=== PATIENT | female | born 1965 | race Caucasian/White ===

== ENCOUNTER 2016-10-21 10:12 | Emergency (ER) | payer MEDICARE, MEDICAID ==
[~2016-10-21] VITALS: Ht 165.1 cm; Wt 67.7 kg
[2016-10-21] MEDS ORDERED: HYDROmorphone 1 MG/ML (DILAUDID) SYRINGE IV ONE (10:45)
[2016-10-21] MEDS ORDERED: ONDANSETRON 2 MG/ML (Z0FRAN) 2 ML VIAL IV ONE (10:45)
[2016-10-21] MEDS: SODIUM CHLORIDE FLUSH 3 ML SYR IV PRN ×2 (11:02→13:09)
--- NOTE | 2016-10-21 11:02 | NUR ---
PATIENT AND SPOUSE ANIMATE ABOUT PT NOT BEING GIVEN DILAUDID. BOTH REPORT PT HAD DILAUDID ONCE BEFORE AND HAD CHEST PAIN, SOA, AND INCREASED ANXIETY. NO DILAUDID GIVEN. DR. BOB NOTIFIED OF PT'S REFUSAL OF MEDICATION. DILAUDID ADDED "ADVERSE REACTION" CHART.
[2016-10-21] MEDS ORDERED: morphine INJ 4 MG/ML 1 ML SYRINGE IV ONE ×2 (11:05→12:30)
[2016-10-21] MEDS: SODIUM CHLORIDE FLUSH 10 ML SYR IV PRN ×3 (11:11→13:00)
[2016-10-21 11:17] LABS: BASOPHILS % (AUTO) 0 % (0-2); EOSINOPHILS % (AUTO) 0 % (0-4); LYMPHOCYTES # (AUTO) 1.1 X10^3; MEAN CORPUSCULAR HGB CONC 35.2 g/dL (31.0-37.0); MEAN CORPUSCULAR VOLUME 94 FL (80-100); MONOCYTES # (AUTO) 0.4 X10^3; MONOCYTES % (AUTO) 4 % (3-11); NEUTROPHILS # (AUTO) 7.5 X10^3; NEUTROPHILS % (AUTO) 83 % (51-67); PLATELET COUNT 204 10^3uL (150-450); WHITE BLOOD COUNT 9.06 10^3uL (4.0-11.0)
[2016-10-21 11:26] LABS: ALBUMIN 4.5 g/dL (3.4-5.0); ANION GAP 13.5 MEQ/L (3-15); CALCULATED IONIZED CALCIUM 4.1 mg/dL (3.8-4.6); TOTAL PROTEIN 7.8 g/dL (6.4-8.5)
[2016-10-21 12:12] LABS: BILIRUBIN,URINE Negative (Negative); CLARITY,URINE Cloudy; COLOR,URINE Yellow; GLUCOSE, URINE (UA) Negative (Negative); LEUKOCYTE ESTERASE ,URINE Negative (Negative); PH,URINE 8.5 (5.0 - 8.0); UROBILINOGEN,URINE 0.2 mg/dL (0.2-1.0)
[2016-10-21 22:29] VITALS: BP 126/69
== END 2016-10-21 13:27 | disposition home or self-care (01) ==
LOC: EDUNIT# 10:12 → ED 10:14
DX: K86.1 Other chronic pancreatitis (principal)
CPT/HCPCS: 36415; 80053; 81003; 83690; 85025; 86140; 96374; 96375; 96376; 99284; J2270; J2405; J7030; 96361; 99283

== ENCOUNTER 2017-01-19 02:55 | Emergency (ER) | payer MEDICARE, MEDICAID ==
[~2017-01-19] VITALS: Ht 165.1 cm; Wt 67.2 kg
[~2017-01-19 02:55] MED LIST: AMIT25TA9 PO; CALC-829 PO; CELE200C PO; ESTR1TAB14 PO; HYDR-3702 PO; LIPA1CAP67 PO; METO-311 PO; MULT-1034 PO; OMEP40CA36 PO; ONDAN4ODT PO; PROM25TA14 PO; SULF-240 PO; TIOT4MIS3 IH; TRM50T PO; VALA500T PO
--- OUTSIDE RECORDS SUMMARY | 2017-01-19 03:01 | XMS REPORT | Continuity of Care Document ---
Author Author [facility] Organization [facility] Address Unknown Phone Unavailable Care Team Providers Care Sock Lining Examiner Name Role Phone Friend, Erika PCP [phone] Source Comments Some departments are not documenting in the electronic medical record. If you do not see the information that you expected, contact Release of Information in the Health Information Management department at [phone] for further assistance in locating additional records.[facility] Active Allergies and Adverse Reactions Allergen Noted Date Severity Reactions Comments Keflex 06/11/2013 SEE COMMENTS, SWEATING nightmares Current Medications Prescription Sig. Disp. Refills Start End Date Status Date COQ10 (UBIQUINOL) PO Take by mouth. Active ERGOCALCIFEROL (VITAMIN Take 2,000 Units by Active D2) (VITAMIN D PO) mouth. Vitamin D 3 ciprofloxacin (CIPRO) 500 Take 1 Tab by mouth twice 6 Tab 0 10/13/19 Active mg tablet daily. 14 [id number] Take by mouth as Needed. Active (FOOD ENZYME PO) promethazine (PHENERGAN) Take 25 mg by mouth every Active 25 mg tablet 6 hours as needed. amoxicillin (AMOXIL) 500 Take 500 mg by mouth Active mg capsule three times daily. other medication 1 Dose. Hydrangea Herbal Active Supplement estrogens, Take 1 Tab by mouth Active conj-medroxyPROGESTERone( daily. +) (PREMPRO) 0.3-1.[address](+) Take 40 mg by mouth Active (PRILOSEC) 40 mg capsule daily. fluconazole (DIFLUCAN) Take 100 mg by mouth Active 100 mg tablet daily. erythromycin base Take 500 mg by mouth as Active (E-MYCIN) 500 mg tablet Needed. TIOTROPIUM BR/OLODATEROL Inhale by mouth twice Active HCL (STIOLTO RESPIMAT IN) daily. traMADol (ULTRAM) 50 mg Take 50 mg by mouth every Active tablet 6 hours as needed for Pain. amitriptyline (ELAVIL) 25 Take 25 mg by mouth at Active mg tablet bedtime daily. HYDROcodone/acetaminophen Take 1 Tab by mouth every Active (NORCO) 5/325 mg tablet 4 hours as needed for Pain ondansetron (ZOFRAN) 4 mg Take 4 mg by mouth every Active tablet 8 hours as needed for Nausea or Vomiting. valACYclovir (VALTREX) Take 500 mg by mouth Active 500 mg tablet every 12 hours. celecoxib (CELEBREX) 200 TAKE ONE CAPSULE BY MOUTH 90 Cap 1 12/14/19 Active mg capsule DAILY 17 pancrelipase (CREON) Take 2 Caps by mouth 240 Cap 5 12/14/19 Active 36,000-114,000- 180,000 three times daily with 17 unit capsule meals. Take 1 cap by mouth with snacks 2 times daily. Active Problems Problem Noted Date Ureteral stone 10/03/2014 Overview: (L) UPJ Stone (L) ESWL -- 10/09/2014; Dr. Blanc -- pending. L ast Assessment & Plan: Personally reviewed [facility] & outside imaging. Discussed management/ treatment options, including ESWL vs URS. Pros/cons of each reviewed. After careful consideration, she would like to proceed w/ ESWL. (L) ESWL -- 10/09/2014; Dr. Blanc Possible risks & complications of surgery including but not limited to to bleeding, infection, allergic reactions, heart and blood pressure problems, persistent/ recurrent stone or stone fragments, stone fragments obstructing the ureter requiring intervention, renal injury, renal hematoma, kidney failure, injury to contiguous structures, need for additional procedures, and anesthesia complications including, but not limited to deep venous thrombosis, heart attack, stroke, pulmonary embolism, respiratory arrest, and . Pt demonstrates an understanding & wishes to proceed.. Pt demonstrates an understanding & wishes to proceed. Surgical consent signed in clinic today. Hold ASA, anticoagulants, blood thinners, NSAIDs, fish oil, & herbal supplements, etc. x 1 wk prior to surgery, unless otherwise directed. Pre-op abx, Levaquin IV, on-call to OR day of surgery. Labs: reviewed. x -- pending. Imaging: [facility] P[facility]. Consults: none. All questions answered to her satisfaction. Depression 10/02/2013 Overview: [employer] Effexor 75mg Gastroparesis 06/11/2013 Overview: This was measured with a 1.5 hr test with her laying down. May need to be repeated. She is a 47 year old woman who in [id number]. She had problems with nausea and vomiting. Associated with mid upper abdominal pain. She had her gallbladder removed at that time. Her abdominal pain resolved. Pancreatitis 06/11/2013 Overview: Ms. St is a 47 year old woman who in [id number] had problems with nausea and vomiting, associated with mid upper abdominal pain. Her gallbladder was removed at that time and that abdominal pain resolved. Her current pain started about a year ago, was on her left side, and was present only when she ate. She rated it a 6-7/10. She would take a Tylenol and Ibuprofen for it. After about 5 months, the pain became present all the time and is in her left upper flank. The pain is not stabbing, not throbbing, and is helped by Effexor and an ice pack. If she ate a full meal, the pain would worsen and she gets nauseous, but she is not sure if she would also vomit. She would possibly become bloated. The pain is present if she awakens at night. In April when she was admitted, her pain was much worse. She has been diagnosed with gastroparesis, having had a 1.5 hr test that showed she emptied only 15% of a standard meal and not the normal 40%. During the times that she is in greatest pain, she has been found to have elevations in her liver enzymes and lipase, consistent, possibly, with passing small common duct stones and having pancreatitis. I saw her first on the 11 of June and felt that her problem was not gastroparesis but pancreatitis. I referred her to Dr. Dubose and she underwent an ERCP and pancreatic stent placement by Dr. Dubose on the 30 of June. During that study, Dr. Dubose found minimal sludge and no obstruction. After the procedure was done, she felt that her midline abdominal pain was slightly better. The pancreatic stent was removed on the September,. I saw her next on the July,. She had been in our ER on the 17 of July with severe abdominal pain and was found to be suffering from a left sided ureteral kidney stone. In talking with her during her visit, outside of this new issue of having a kidney stone, she felt that she was not back in any way to her normal status. The last time she was "normal" was early this year. She has constant left sided pain. It gets severe about 3 times a week. The pain becomes bad enough for her to seek care about monthly. She feels that she is slightly better after the ERCP and pancreatic stent placement. She has had blood in her urine periodically. She does have a history of interstitial cystitis. She was to be started on Flowmax to help her excrete the stone, which was not started in the ER but I started it after her visit. She had a follow-up cystoscopy that did not find any evidence of bladder lesions. She apparently was doing ok in August and early September, but she developed severe left sided abdominal pain in the end of September, was found to have an elevated lipases of 700 and 900, and a CT done on the September, demonstrated distal pancreatitis. Eventually, we had her admitted on the September,. The CT was uploaded onto PACS and reviewed. During her stay she had a follow-up CT on the 02 of October that confirmed the new finding of pancreatitis. During her stay, we consulted Dr. Vera who advised us to start her on Octreotide, which she tolerated. She was able to eat a low fat diet and was discharged on the october, with slowly resolving pancreatic enzymes. L ast Assessment & Plan: Ms. St returned to clinic on the 17 of October. Since discharge, she has persistent 4-5/10 abdominal pain that is worsened with taking the octreotide with meals. She has visited Dr. Vera and it was recommended to take clear liquids prior to administering the octreotide shots. Likewise, the shots are now decreased to twice a day. She has also visited Dr. Blanc to further evaluate her hematuria via cystoscopy, the results of which were normal except for a trace of blood. Overall, she feels the abdominal pain has been constant but not as severe. She takes a Vicodin only once a week. Nephrolithiasis Overview: Passed kidney stone -- 2012. (L) ESWL -- 10/09/2014; Dr. Blanc -- pending. L ast Assessment & Plan: See ureteral stone A&P note. Chronic pain Last Assessment & Plan: Discussed that some of her more recent (L) flank pain exacerbation may be related to current stone, but treating stone is unlikely to resolve all chronic abd pain issues. She demonstrated an understanding. Chronic female pelvic pain Last Assessment & Plan: May consider referral back to Dr. Wong for repeat evaluation. May consider referral to pelvic floor PT. Most Recent Encounters Date Type Specialty Providers Description 01/01/2017 Ancillary Gastroenterology Ehsan Vera MD Abdominal discomfort Orders (Primary Dx); Pancreatitis, unspecified pancreatitis type; Gastroparalysis; Gastroparesis; Epigastric pain 12/25/2016 Telephone Gastroenterology Ehsan Vera MD Results 12/20/2016 [facility] Radiology Ehsan Vera MD Encounter 12/20/2016 Ancillary Ehsan Pierre MD Abdominal discomfort Orders (Primary Dx); Pancreatitis, unspecified pancreatitis type; Gastroparalysis; Gastroparesis; Pain aggravated by eating or drinking; Chronic vascular disorder of intestine (HCC) ; Other vascular disorders of intestine (HCC) 12/12/2016 Hospital Radiology Ehsan Vera MD Encounter 12/12/2016 Hospital Ehsan Vera MD Unspecified abdominal Encounter pain 12/11/2016 Hospital Ehsan Vera MD Unspecified abdominal Encounter pain 12/11/2016 Refill Gastroenterology Ehsan Vera MD Recurrent acute pancreatitis (Primary Dx) 12/06/2016 Hospital Lab Ehsan Vera MD Unspecified abdominal Encounter pain 12/06/2016 Office Visit GastroenterEhsan Blum MD Abdominal discomfort (Primary Dx); Pancreatitis, unspecified pancreatitis type; Gastroparalysis; Gastroparesis 12/06/2016 Hospital Radiology Ehsan Vera MD Encounter 12/06/2016 Hospital Radiology Ehsan Vera MD Encounter Social History Tobacco Use Types Packs/Day Years Used Date Current Some Day Smoker Cigarettes 0.2 20 Smokeless Tobacco: Never Used Comments: 3 Cigs at most daily. Alcohol Use Drinks/Week oz/Week Comments No Used to drink occasionally but none for 5 yrs Last Filed Vital Signs Vital Sign Reading Time Taken Blood Pressure 121/78 12/06/2016 9:01 AM CDT Pulse 92 12/06/2016 9:01 AM CDT Temperature 36.7 C (98 F) 12/06/2016 9:01 AM CDT Respiratory Rate 16 12/06/2016 9:01 AM CDT Height 1.676 m (5' 6") 12/06/2016 9:01 AM CDT Weight 68.675 kg (151 lb 6.4 oz) 12/06/2016 9:01 AM CDT Body Mass Index 24.45 12/06/2016 9:01 AM CDT Oxygen Saturation 99% 12/06/2016 9:01 AM CDT Plan of Care Health Maintenance Due Date Last Done Comments Hepatitis C Screening 1964 Physical (Comprehensive) 1971 Exam Pertussis Vaccine 1975 Tetanus Vaccine 1981 Cervical Cancer Screening 1985 Breast Cancer Screening 2004 Colorectal Cancer 2014 Screening Influenza Vaccine 05/04/2017 Results from Last 3 Months US DOPPLER ABD PELV RETROPER LTD (12/20/2016 1:54 PM) Impressions 1.Widely patent abdominal aorta and major branch vessels.There is no significant plaque or Doppler findings to suggest hemodynamically significant arterial stenosis. 2.Prior cholecystectomy.There is no bile duct dilatation. 3.Nonobstructive 7 mm left lower pole renal calculus. Finalized by Dominga Rodas M.D. on 12/20/2016 3:21 PM. Dictated by Dominga Rodas M.D. on 12/20/2016 3:12 PM. Narrative Complete abdominal ultrasound including mesenteric Doppler Clinical Indication: Female, 51 years; abdominal pain when eating, gastroparesis. Technique: Multiple grayscale sonographic images were obtained of the abdomen with additional color and spectral Doppler acquisitions. Comparison: CT abdomen/pelvis 08/19/2014 and 09/24/2013 Findings: Liver and Biliary System:homogeneous echotexture, normal size measuring 13.5 cm. No solid hepatic masses are identified.A few mildly complicated cysts are noted in the left lobe.There is no intrahepatic bile duct dilatation.The common duct measures 0.5 cm at the miladys hepatis.The gallbladder is surgically absent. Pancreas: Visualized portions of the pancreas are mildly atrophic.No pancreatic ductal dilatation. Spleen: Normal in size measuring 9.7 cm. Aorta and Major arteries: Mild atherosclerotic plaque of the abdominal aorta without aneurysm.The celiac, common hepatic and splenic arteries are all patent with normal blood flow.The superior mesenteric and inferior mesenteric arteries are widely patent with normal high resistive blood flow ( patient fasting).No significant arterial plaque.No visible stenosis on color Doppler imaging.Peak systolic velocities are as follows: Abdominal aorta: 84 cm/sec Celiac artery: 108 cm/sec Superior mesenteric artery: 176 cm/sec Inferior mesenteric artery: 166 cm/sec IVC: Visualized portions are normal in caliber.The superior mesenteric and main portal veins are widely patent. Kidneys and Bladder: The right kidney measures 10.4 cm.The left kidney measures 10.2 cm.There is a prominent, shadowing, nonobstructive calculus in the lower pole of the left kidney measuring approximately 7 mm in diameter. No hydronephrosis. The partially distended urinary bladder is unremarkable. Peritoneal Space:No abdominopelvic ascites. Procedure Note Interface, Radiant Results - Tue January 02, 2017 7:11 AM CDT Complete abdominal ultrasound including mesenteric Doppler Clinical Indication: Female, 51 years; abdominal pain when eating, gastroparesis. Technique: Multiple grayscale sonographic images were obtained of the abdomen with additional color and spectral Doppler acquisitions. Comparison: CT abdomen/pelvis 08/19/2014 and 09/24/2013 Findings: Liver and Biliary System: homogeneous echotexture, normal size measuring 13.5 cm. No solid hepatic masses are identified. A few mildly complicated cysts are noted in the left lobe. There is no intrahepatic bile duct dilatation. The common duct measures 0.5 cm at the miladys hepatis. The gallbladder is surgically absent. Pancreas: Visualized portions of the pancreas are mildly atrophic. No pancreatic ductal dilatation. Spleen: Normal in size measuring 9.7 cm. Aorta and Major arteries: Mild atherosclerotic plaque of the abdominal aorta without aneurysm. The celiac, common hepatic and splenic arteries are all patent with normal blood flow. The superior mesenteric and inferior mesenteric arteries are widely patent with normal high resistive blood flow (patient fasting). No significant arterial plaque. No visible stenosis on color Doppler imaging. Peak systolic velocities are as follows: Abdominal aorta: 84 cm/sec Celiac artery: 108 cm/sec Superior mesenteric artery: 176 cm/sec Inferior mesenteric artery: 166 cm/sec IVC: Visualized portions are normal in caliber. The superior mesenteric and main portal veins are widely patent. Kidneys and Bladder: The right kidney measures 10.4 cm. The left kidney measures 10.2 cm. There is a prominent, shadowing, nonobstructive calculus in the lower pole of the left kidney measuring approximately 7 mm in diameter. No hydronephrosis. The partially distended urinary bladder is unremarkable. Peritoneal Space: No abdominopelvic ascites. IMPRESSION 1. Widely patent abdominal aorta and major branch vessels. There is no significant plaque or Doppler findings to suggest hemodynamically significant arterial stenosis. 2. Prior cholecystectomy. There is no bile duct dilatation. 3. Nonobstructive 7 mm left lower pole renal calculus. Finalized by Dominga Rodas M.D. on 12/20/2016 3:21 PM. Dictated by Dominga Rodas M.D. on 12/20/2016 3:12 PM. US ABDOMEN COMPLETE (12/20/2016 1:54 PM) Impressions 1.Widely patent abdominal aorta and major branch vessels.There is no significant plaque or Doppler findings to suggest hemodynamically significant arterial stenosis. 2.Prior cholecystectomy.There is no bile duct dilatation. 3.Nonobstructive 7 mm left lower pole renal calculus. Finalized by Dominga Rodas M.D. on 12/20/2016 3:21 PM. Dictated by Dominga Rodas M.D. on 12/20/2016 3:12 PM. Narrative Complete abdominal ultrasound including mesenteric Doppler Clinical Indication: Female, 51 years; abdominal pain when eating, gastroparesis. Technique: Multiple grayscale sonographic images were obtained of the abdomen with additional color and spectral Doppler acquisitions. Comparison: CT abdomen/pelvis 08/19/2014 and 09/24/2013 Findings: Liver and Biliary System:homogeneous echotexture, normal size measuring 13.5 cm. No solid hepatic masses are identified.A few mildly complicated cysts are noted in the left lobe.There is no intrahepatic bile duct dilatation.The common duct measures 0.5 cm at the miladys hepatis.The gallbladder is surgically absent. Pancreas: Visualized portions of the pancreas are mildly atrophic.No pancreatic ductal dilatation. Spleen: Normal in size measuring 9.7 cm. Aorta and Major arteries: Mild atherosclerotic plaque of the abdominal aorta without aneurysm.The celiac, common hepatic and splenic arteries are all patent with normal blood flow.The superior mesenteric and inferior mesenteric arteries are widely patent with normal high resistive blood flow ( patient fasting).No significant arterial plaque.No visible stenosis on color Doppler imaging.Peak systolic velocities are as follows: Abdominal aorta: 84 cm/sec Celiac artery: 108 cm/sec Superior mesenteric artery: 176 cm/sec Inferior mesenteric artery: 166 cm/sec IVC: Visualized portions are normal in caliber.The superior mesenteric and main portal veins are widely patent. Kidneys and Bladder: The right kidney measures 10.4 cm.The left kidney measures 10.2 cm.There is a prominent, shadowing, nonobstructive calculus in the lower pole of the left kidney measuring approximately 7 mm in diameter. No hydronephrosis. The partially distended urinary bladder is unremarkable. Peritoneal Space:No abdominopelvic ascites. Procedure Note Interface, Radiant Results - Tue January 02, 2017 7:11 AM CDT Complete abdominal ultrasound including mesenteric Doppler Clinical Indication: Female, 51 years; abdominal pain when eating, gastroparesis. Technique: Multiple grayscale sonographic images were obtained of the abdomen with additional color and spectral Doppler acquisitions. Comparison: CT abdomen/pelvis 08/19/2014 and 09/24/2013 Findings: Liver and Biliary System: homogeneous echotexture, normal size measuring 13.5 cm. No solid hepatic masses are identified. A few mildly complicated cysts are noted in the left lobe. There is no intrahepatic bile duct dilatation. The common duct measures 0.5 cm at the miladys hepatis. The gallbladder is surgically absent. Pancreas: Visualized portions of the pancreas are mildly atrophic. No pancreatic ductal dilatation. Spleen: Normal in size measuring 9.7 cm. Aorta and Major arteries: Mild atherosclerotic plaque of the abdominal aorta without aneurysm. The celiac, common hepatic and splenic arteries are all patent with normal blood flow. The superior mesenteric and inferior mesenteric arteries are widely patent with normal high resistive blood flow (patient fasting). No significant arterial plaque. No visible stenosis on color Doppler imaging. Peak systolic velocities are as follows: Abdominal aorta: 84 cm/sec Celiac artery: 108 cm/sec Superior mesenteric artery: 176 cm/sec Inferior mesenteric artery: 166 cm/sec IVC: Visualized portions are normal in caliber. The superior mesenteric and main portal veins are widely patent. Kidneys and Bladder: The right kidney measures 10.4 cm. The left kidney measures 10.2 cm. There is a prominent, shadowing, nonobstructive calculus in the lower pole of the left kidney measuring approximately 7 mm in diameter. No hydronephrosis. The partially distended urinary bladder is unremarkable. Peritoneal Space: No abdominopelvic ascites. IMPRESSION 1. Widely patent abdominal aorta and major branch vessels. There is no significant plaque or Doppler findings to suggest hemodynamically significant arterial stenosis. 2. Prior cholecystectomy. There is no bile duct dilatation. 3. Nonobstructive 7 mm left lower pole renal calculus. Finalized by Dominga Rodas M.D. on 12/20/2016 3:21 PM. Dictated by Dominga Rodas M.D. on 12/20/2016 3:12 PM. NM GASTRIC EMPTYING TIME (12/12/2016 1:09 PM) Impressions Delayed gastric emptying times throughout the entirety of the study. This has progressed in comparison to the prior examination and is suggestive of worsening gastroparesis. Finalized by Lenny Stevens D.O. on 12/12/2016 1:28 PM. Dictated by Lenny Stevens D.O. on 12/12/2016 1:21 PM. Narrative GASTRIC EMPTYING TIME: Clinical history: Abdominal discomfort; pancreatitis, unspecified pancreatitis type; gastroparesis; abdominal discomfort when eating, pancreatitis, gastroparesis TECHNIQUE: Patient ingested the standard test dose meal consisting of the equivalent of two scrambled egg beaters labeled with 1.1 mCi of T-99m sulfur colloid, toast, jelly and 4 oz of water.Standing anterior and posterior projection images were obtained over the patients upper abdomen at 0,1,2,3, and 4 hours.The percent gastric geometric mean retention was then calculated. COMPARISON: June 12, 2013 0.0 your recurrent or residual the extremities is previous for between the 2 studies are located within the assess the first row problem stage III (likely is that there is 90 9D 8 cm there is membrane thickening in the left lateral femoral artery 95.4 FINDINGS: Current: Time: % Retention Normal Range One Hour94 %; 34.8% to 91% Two Hours 66 %; 2.7% to 60% Three Hours 51 %; 0.5% to 28% Four Hours 19 %;0% to 10% Previous: Time: % Retention Normal Range One Hour60 %; 34.8% to 91% Two Hours 48 %; 2.7% to 60% Three Hours 20 %; 0.5% to 28% Four Hours 18 %;0% to 10% Procedure Note Interface, Radiant Results - Tue Dec 12, 2016 1:31 PM CDT GASTRIC EMPTYING TIME: Clinical history: Abdominal discomfort; pancreatitis, unspecified pancreatitis type; gastroparesis; abdominal discomfort when eating, pancreatitis, gastroparesis TECHNIQUE: Patient ingested the standard test dose meal consisting of the equivalent of two scrambled egg beaters labeled with 1.1 mCi of T-99m sulfur colloid, toast, jelly and 4 oz of water. Standing anterior and posterior projection images were obtained over the patients upper abdomen at 0,1,2,3, and 4 hours. The percent gastric geometric mean retention was then calculated. COMPARISON: June 12, 2013 0.0 your recurrent or residual the extremities is previous for between the 2 studies are located within the assess the first row problem stage III (likely is that there is 90 9D 8 cm there is membrane thickening in the left lateral femoral artery 95.4 FINDINGS: Current: Time: % Retention Normal Range One Hour 94 %; 34.8% to 91% Two Hours 66 %; 2.7% to 60% Three Hours 51 %; 0.5% to 28% Four Hours 19 %; 0% to 10% Previous: Time: % Retention Normal Range One Hour 60 %; 34.8% to 91% Two Hours 48 %; 2.7% to 60% Three Hours 20 %; 0.5% to 28% Four Hours 18 %; 0% to 10% IMPRESSION Delayed gastric emptying times throughout the entirety of the study. This has progressed in comparison to the prior examination and is suggestive of worsening gastroparesis. Finalized by Lenny Stevens D.O. on 12/12/2016 1:28 PM. Dictated by Lenny Stevens D.O. on 12/12/2016 1:21 PM. PANCREATIC ELASTASE, STOOL (12/11/2016 4:00 PM) Component Value Range Patient Value Pancreatic 486.1Comment: Unit: ug E/g stool Elas Interpretation Pancreatic Normal ELAS ADDITIONAL INFORMATION Reference Values For Pancreatic Elastase in Stool >200 ug Elastase/g stool=Normal 100 to 200 ug Elastase/g stool=Moderate to slight exocrine pancreatic insufficiency <100 ug Elastase/g stool=Severe exocrine pancreatic insufficiency Test Performed by: [employer] [place] [address] CA19.9 (12/06/2016 10:47 AM) Component Value Range CA 19-9 13 <35 U/ml Specimen Blood LIPASE (12/06/2016 10:47 AM) Component Value Range Lipase 30 11-82 U/L Specimen Blood AMYLASE (12/06/2016 10:47 AM) Component Value Range Amylase 33 24-100 U/L Specimen Blood COMPREHENSIVE METABOLIC PANEL (12/06/2016 10:47 AM) Component Value Range Sodium 140 137-147 MMOL/L Potassium 4.4 3.5-5.1 MMOL/L Chloride 108 98-110 MMOL/L Glucose 88 70-100 MG/DL Blood Urea Nitrogen 19 7-25 MG/DL Creatinine 0.73 0.4-1.00 MG/DL Calcium 9.9 8.5-10.6 MG/DL Total Protein 7.7 6.0-8.0 G/DL Total Bilirubin 0.4 0.3-1.2 MG/DL Albumin 4.5 3.5-5.0 G/DL Alk Phosphatase 55 25-110 U/L AST (SGOT) 16 7-40 U/L CO2 26 21-30 MMOL/L ALT (SGPT) 14 7-56 U/L Anion Gap 6 3-12 eGFR Non >60Comment: >60 mL/min The eGFR is not validated for use in drug dosing adjustments. Continue to use estimated creatinine clearance per dosing reference text. Please contact the Clinical Pharmacist for questions. eGFR >60Comment: >60 mL/min The eGFR is not validated for use in drug dosing adjustments. Continue to use estimated creatinine clearance per dosing reference text. Please contact the Clinical Pharmacist for questions. Specimen Blood CBC (12/06/2016 10:47 AM) Component Value Range White Blood Cells 6.9 4.5-11.0 K/UL RBC 4.73 4.0-5.0 M/UL Hemoglobin 15.9 (H) 12.0-15.0 GM/DL Hematocrit 46.2 (H) 36-45 % MCV 97.8 80-100 FL MCH 33.5 26-34 PG MCHC 34.3 32.0-36.0 G/DL RDW 12.9 11-15 % Platelet Count 212 150-400 K/UL MPV 9.3 7-11 FL Specimen Blood US ABD DOPPLER EXTERNAL IMAGING (12/06/2016 12:15 AM)Only the most recent of 2 results within the time period is included. Narrative This order has been auto finalized and does not contain a result.
--- OUTSIDE RECORDS SUMMARY | 2017-01-19 03:02 | XMS REPORT | Continuity of Care Document ---
Author Author [facility] Organization [facility] Address Unknown Phone Unavailable Care Team Providers Care Tan Room Supervisor Name Role Phone Friend, Erika PCP [phone] Source Comments Some departments are not documenting in the electronic medical record. If you do not see the information that you expected, contact Release of Information in the Health Information Management department at [phone] for further assistance in locating additional records.[facility] Active Allergies and Adverse Reactions Allergen Noted [...] 0 10/13/19 Active mg tablet daily. 14 DINEZ-H-TZXOMVELVATFU Take by mouth as Needed. Active (FOOD [...] answered to her satisfaction. Depression 10/02/2013 Overview: [employer] Effexor 75mg Gastroparesis 06/11/2013 Overview: This was measured with a 1.5 hr test with her laying down. May need to be repeated. She is a 47 year old woman who in [id number]. She had problems with nausea and vomiting. Associated with mid upper abdominal pain. She had her gallbladder removed at that time. Her abdominal pain resolved. Pancreatitis 06/11/2013 Overview: Ms. St is a 47 year old woman who in [id number] had problems with nausea and vomiting, associated [...] Telephone Gastroenterology Ehsan Vera MD Results 12/20/2016 [facility] Radiology Ehsan Vera MD Encounter 12/20/2016 Ancillary [...] stool=Severe exocrine pancreatic insufficiency Test Performed by: [employer]. [facility] [place] [address] CA19.9 (12/06/2016 10:47 AM) Component Value Range [...]
[2017-01-19] MEDS ORDERED: SODIUM CHLORIDE FLUSH 3 ML SYR IV ONE (03:40)
[2017-01-19] MEDS ORDERED: SODIUM CHLORIDE FLUSH 10 ML SYR IV PRN (03:40)
[2017-01-19] MEDS ORDERED: FLUO20TA28 PO (03:40)
[2017-01-19] MEDS ORDERED: ALEN70TA47 PO (03:40)
[2017-01-19] MEDS ORDERED: ONDANSETRON 2 MG/ML (Z0FRAN) 2 ML VIAL IV ONE (03:40)
[2017-01-19] MEDS ORDERED: ONDA4TAB11 PO (03:40)
[2017-01-19] MEDS ORDERED: ACYC400T PO (03:40)
[2017-01-19] MEDS ORDERED: diphenhydrAMINE 50 MG/ML INJ (BENADRYL) IV ONE (03:40)
[2017-01-19] MEDS ORDERED: morphine INJ 4 MG/ML 1 ML SYRINGE IV ONE (03:40)
[2017-01-19] MEDS ORDERED: KETOROLAC 30 MG/ML (TORADOL) 1 ML VIAL IV ONE (03:40)
[2017-01-19] MEDS ORDERED: TRM50T PO (03:40)
[2017-01-19 04:03] LABS: BASOPHILS % (AUTO) 0 % (0-2); EOSINOPHILS % (AUTO) 1 % (0-4); LYMPHOCYTES # (AUTO) 1.5 X10^3; MEAN CORPUSCULAR HGB CONC 35.2 g/dL (31.0-37.0); MEAN CORPUSCULAR VOLUME 93 FL (80-100); MEAN PLATELET VOLUME 10.5 FL (6.0-9.5); MONOCYTES # (AUTO) 0.6 X10^3; MONOCYTES % (AUTO) 7 % (3-11); NEUTROPHILS # (AUTO) 6.5 X10^3; NEUTROPHILS % (AUTO) 75 % (51-67); PLATELET COUNT 228 10^3uL (150-450); WHITE BLOOD COUNT 8.67 10^3uL (4.0-11.0)
[2017-01-19 04:07] LABS: MEAN CORPUSCULAR HEMOGLOBIN 32.8 PG (26.0-34.0)
[2017-01-19 04:16] LABS: ALBUMIN 4.5 g/dL (3.4-5.0); ANION GAP 14.5 MEQ/L (3-15); CALCULATED IONIZED CALCIUM 4.4 mg/dL (3.8-4.6); TOTAL PROTEIN 7.7 g/dL (6.4-8.5)
[2017-01-19 05:43] LABS: BILIRUBIN,URINE Negative (Negative); CLARITY,URINE Clear; COLOR,URINE Yellow; GLUCOSE, URINE (UA) Negative (Negative); LEUKOCYTE ESTERASE ,URINE Negative (Negative); PH,URINE 8.5 (5.0 - 8.0); UROBILINOGEN,URINE 0.2 mg/dL (0.2-1.0)
--- NOTE | 2017-01-19 05:43 | NUR ---
PT RESTING WITHOUT COMPLAINT PER NURSE REPORT. ASSUMED CARE OF PATIENT- AWAITING UA RESULT
[2017-01-19 05:54] LABS: AMPHETAMINE SCREEN, URINE Negative (Negative); CANNABINOID SCREEN, URINE Negative (Negative); METHAMPHETAMINE SCREEN URINE S NEGATIVE (NEGATIVE); OPIATE SCREEN URINE Positive (Negative); PROPOXYPHENE STAT NEGATIVE (NEGATIVE)
--- NOTE | 2017-01-19 06:00 | NUR ---
RESULTS ARE BACK-MD MADE AWARE.
[2017-01-19] MEDS ORDERED: ONDA4TAB8 PO (06:07)
[2017-01-19 06:34] VITALS: BP 109/76
--- NOTE | 2017-01-19 07:03 | Diagnostic Imaging Report ---
PROCEDURE: CT abdomen and pelvis without contrast. TECHNIQUE: Multiple contiguous axial images were obtained through the abdomen and pelvis without the use of intravenous contrast. INDICATION: Left-sided abdominal pain x3-4 hours. CORRELATION STUDY: 08/19/2016 FINDINGS: Scattered rounded low-density areas within the liver most compatible with cyst appearing stable. Gallbladder absent with clips in the fossa. No significant bile duct dilatation. Spleen and adrenal glands unremarkable. Pancreas unremarkable. Nonobstructive calcification of the left kidney inferior pole. No obstructive uropathy. Abdominal aorta normal in contour. Gastrointestinal tract without obstruction or inflammation. Few colonic diverticuli are present. Visualized portion of the appendix appearing unremarkable. No abdominal ascites or free air. Urinary bladder unremarkable. Uterus absent. IMPRESSION: 1. Negative for acute abnormality about the abdomen and/or pelvis. 2. Nonobstructive left renal stones. Dictated by: Dictated on workstation # [id number]
== END 2017-01-19 06:20 | disposition home or self-care (01) ==
LOC: ED 02:57
DX: N20.0 Calculus of kidney (principal); K76.89 Other specified diseases of liver
CPT/HCPCS: 36415; 74176; 80053; 80307; 81003; 82150; 83690; 84443; 85025; 85610; 86140; 96361; 96374; 96375; 99284; J1200; J1885; J2270; J2405; J7030; 99283